=== PATIENT | male | born 1965 | race Caucasian/White ===

== ENCOUNTER 2016-03-27 17:54 | Emergency (ER) | payer OTHER ==
[~2016-03-27 17:54] MED LIST: ENOX40SY; KEFL500C; No Historical Meds; PERC5TAB8
[2016-03-27] MEDS ORDERED: IBUPROFEN 600 MG TAB As Ordered ONE (18:30)
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
--- NOTE | 2016-03-27 20:17 | REP ---
THORACIC SPINE SERIES, THREE VIEWS: 03/27/2016. Clinical history: Trauma. Findings. There is no prior study. AP view shows pedicles, spinous and transverse processes as well as posterior ribs and medial clavicles to be all intact. No scoliosis. There are marginal osteophytes on the lateral view of the mid and lower thoracic spine. There may be some minimal anterior superior endplate wedging at T11, but I cannot confirm that this is acute. The cervicothoracic junction aligns normally. Impression: 1. Some degenerative disc changes with marginal osteophytes mid and lower thoracic spine and minimal superior endplate wedging T11 of uncertain age. It is not definitely acute. Signed by Carloz Bonilla MD 03/28/2016 07:17 P
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
== END 2016-03-27 19:27 | disposition home or self-care (01) ==
LOC: M ED 17:54
DX: S13.4XXA Sprain of ligaments of cervical spine, initial encounter (principal); S23.3XXA Sprain of ligaments of thoracic spine, initial encounter; Z72.0 Tobacco use; Z91.013 Allergy to seafood; V49.40XA Driver injured in collision with unspecified motor vehicles in traffic accident, initial encounter; Y92.410 Unspecified street and highway as the place of occurrence of the external cause; Y93.89 Activity, other specified; Y99.9 Unspecified external cause status

== ENCOUNTER → 2017-08-10 | Outpatient (CLI) | payer OTHER | LOC: M SLEEP 19:42 | DX: G47.33 Obstructive sleep apnea (adult) (pediatric) (principal) | CPT/HCPCS: 95810 ==

== ENCOUNTER 2018-07-25 11:07 | Day surgery (SDC) | payer OTHER ==
[~2018-07-25] VITALS: Ht 172.7 cm; Wt 74.4 kg
[~2018-07-25 11:07] MED LIST changes: -ENOX40SY; +LOVE1INJ; +NS 1,000 ML IV ONE
--- NOTE | 2018-07-25 13:13 | ROOR ---
Patient Name: Eriberto Mcintosh Procedure Date: 07/25/2018 12:44 PM Date of : 1965 Age: 52 Room: [facility] Gender: Male Note Status: Finalized Procedure: Total Colonoscopy to Cecum + Biopsy Polypectomy Indications: Screening for colorectal malignant neoplasm Providers: Deep Del Valle MD Referring MD: JASWINDER SAN MD Requesting Provider: Medicines: Monitored Anesthesia Care Complications: No immediate complications. Procedure: Pre-Anesthesia Assessment: - The heart rate, respiratory rate, oxygen saturations, blood pressure, adequacy of pulmonary ventilation, and response to care were monitored throughout the procedure. The Colonoscope was introduced through the anus and advanced to the cecum, identified by appendiceal orifice and ileocecal valve. The colonoscopy was performed without difficulty. The patient tolerated the procedure well. The quality of the bowel preparation was excellent. Findings: The perianal and digital rectal examinations were normal. Non-bleeding internal hemorrhoids were found during retroflexion. The hemorrhoids were small and Grade I (internal hemorrhoids that do not prolapse). Scattered small-mouthed diverticula were found in the recto-sigmoid colon, sigmoid colon and descending colon. A diminutive polyp was found at 40 cm proximal to the anus. The polyp was sessile. The polyp was removed with a jumbo cold forceps. Resection and retrieval were complete. The exam was otherwise without abnormality on direct and retroflexion views. Impression: - Non-bleeding internal hemorrhoids. - Diverticulosis in the recto-sigmoid colon, in the sigmoid colon and in the descending colon. - One diminutive polyp at 40 cm proximal to the anus, removed with a jumbo cold forceps. Resected and retrieved. - The examination was otherwise normal on direct and retroflexion views. - The exam was otherwise normal to the cecum. Recommendation: - Patient has a contact number available for emergencies. The signs and symptoms of potential delayed complications were discussed with the patient. Return to normal activities tomorrow. Written discharge instructions were provided to the patient. - High fiber diet. - Discharge patient to home. - Continue present medications. - Await pathology results. - Telephone GI clinic for pathology results in 1 week. - Repeat colonoscopy date to be determined after pending pathology results are reviewed for screening purposes. - Return to referring physician. - The findings and recommendations were discussed with the patient's family. Deep Del Valle MD Deep Del Valle MD 07/25/2018 1:12:35 PM Electronically signed by Deep Del Valle MD Number of Addenda: 0 Note Initiated On: 07/25/2018 12:44 PM Estimated Blood Loss: Estimated blood loss: none.
[2018-07-25] MEDS ORDERED: LIDOCAINE 2% INJ 100 MG/5 ML SDV (FOR ANES.) As Ordered ONE (13:25)
[2018-07-25] MEDS ORDERED: PROPOFOL 500 MG/50 ML VIAL As Ordered ONE (13:25)
[2018-07-25 13:34] VITALS: BP 138/82
== END 2018-07-25 13:41 | disposition home or self-care (01) ==
LOC: M OPP 11:07
PROVIDERS: ATTEND Internal Medicine Gastroenterology
DX: K63.5 Polyp of colon (principal); K64.0 First degree hemorrhoids; K57.30 Diverticulosis of large intestine without perforation or abscess without bleeding; Z12.11 Encounter for screening for malignant neoplasm of colon